=== PATIENT | male | born 1970 | race Caucasian/White ===

== ENCOUNTER 2023-10-09 18:13 | Emergency (ER) | payer SELFPAY ==
--- NOTE | 2023-10-09 19:02 | ED.GENMED ---
History of Present Illness
General
Chief Complaint: Crisis Evaluation
Source: patient and records
Time Seen by Provider: 10/09/23 18:27
Nursing documentation reviewed up to this point in time: agreed with
Travel History
Have you had any contact with someone who has COVID-19?: No
Do you have any symptoms of coronavirus? Fever > 100 degrees, chills, cough, shortness of breath, sore throat, loss of taste or smell, muscle aches, or headache?: No
History of Present Illness
History of Present Illness:
53-year-old male history of depression, seizure disorder brought in by police under 302 apparently was making threats of harming himself, taking pills here he is not cooperative, he is angry, tells me he is not working because he has seizures and
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
Prior records reviewed was admitted with a seizure, apparently had a meningioma resection with a leak, looks like he takes Keppra and Lamictal unclear if he has been compliant with that
Patient denies taking any pills or alcohol today
Additional history patient tells me he has not had his lamotrigine for 2 days apparently probably getting to a psychiatrist due to an [employer], tells me is no longer prescribed Keppra, he is prescribed lisinopril which she has been taking
Past History
Past History
ED Past Medical History: HTN and Seizures
ED Past Surgical History: Brain (Meningioma)
Social History
Tobacco: Non-smoker
Alcohol: None
Drug: None
Personal:
Living: with family
Employment: Not employed
Review of Systems
Review of Systems
Other source history: other (302/prior records)
All Other Systems: Not applicable
Phy Exam
Physical Exam
Physical Exam:
Physical Exam
General: Agitated male not cooperative
Neck: No jaundice
Lungs: no acute respiratory distress.
Neuro: alert and oriented. no focal neurological deficits
Skin: no rash
Psychiatric: Agitated pressured speech, using profanities threatening staff
Extremities: no edema.
Course
Orders/Labs/Results
Orders:
Orders
10/09/23 18:45
Haloperidol Lactate [Haldol] 10 mg IM NOW STA
10/09/23 18:46
Lorazepam [Ativan] 4 mg IM NOW STA
10/09/23 18:51
Crisis Consult Urgent
Reason for Consult: 302
10/09/23 19:30
Acetaminophen Urgent
Alcohol Urgent
Complete Blood Count/With Diff Urgent
Comprehensive Metabolic Panel Urgent
Salicylate Urgent
10/09/23 19:39
Asenapine Sublingual [Saphris] 5 mg .ROUTE .STK-MED ONE
10/09/23 19:42
Asenapine Sublingual [Saphris] 5 mg .ROUTE .STK-MED ONE
10/09/23 19:48
Asenapine Sublingual [Saphris] 10 mg SL NOW STA
10/09/23 19:52
Asenapine Sublingual [Saphris] 10 mg SL NOW STA
10/09/23 20:32
Haloperidol Lactate [Haldol] 1 mg IM NOW STA
Lorazepam [Ativan] 4 mg IM NOW STA
10/09/23 20:35
Haloperidol Lactate [Haldol] 10 mg IM NOW STA
10/09/23 20:51
Keppra (Levetiracetam) [S] Urgent
Urine Drug Abuse Screen Urgent
Date Specimen was Collected: 10/09/23
Time Specimen was Collected: 20:50
10/09/23 21:06
Restraints - Violent As Directed
Restraint Type-: Locked-4 point/4 rails
Apply From (date): 10/09/23
Apply from (time): 21:06
Remove (date): 10/10/23
Remove (time): 01:06
10/10/23 03:30
Restraints - Violent As Directed
Restraint Type-: Locked-4 point/4 rails
Apply From (date): 10/10/23
Apply from (time): 01:06
Remove (date): 10/10/23
Remove (time): 07:30
10/10/23 07:01
Restraints - Violent As Directed
Restraint Type-: Four Side Rails
Apply From (date): 10/10/23
Apply from (time): 07:01
Remove (date): 10/10/23
Remove (time): 11:01
10/10/23 09:00
COVID-19 Antigen Urgent
Source: Nasal Swab
Abnormal Lab Results
10/09/23 10/09/23
19:30 20:51
WBC 11.6 H 10^3/uL
(4.8-10.8)
RBC 6.66 H 10^6/uL
(4.70-6.10)
Hgb 19.4 H g/dL
(13.0-18.0)
Hct 56.8 H %
(39.0-52.0)
RDW 14.9 H %
(11.5-14.5)
Absolute Neuts (auto) 8.4 H 10^3/uL
(1.4-6.5)
Lymphocytes % 20.4 L %
(20.5-51.1)
Glucose 124 H mg/dl
(70-99)
Calcium 10.7 H mg/dl
(8.4-10.2)
Albumin 5.5 H g/dl
(3.5-5.0)
Salicylates < 1.0 L mg/dl
(2.0-20.0)
Acetaminophen < 10 L ug/ml
(10-30)
U Marijuana (THC) Screen Positive H
(Negative)
10/09/23 19:30
10/09/23 19:30
Vital Signs
Initial and Last Documented VS:
Initial Vital Signs
Temp Pulse Resp BP Pulse Ox
97.9 F 70 16 179/93 100
10/09/23 19:27 10/09/23 19:27 10/09/23 19:27 10/09/23 19:27 10/09/23 19:27
Last Documented Vital Signs
Temp Pulse Resp BP Pulse Ox
98.7 F 83 17 156/93 97
10/10/23 08:59 10/10/23 08:59 10/10/23 08:59 10/10/23 08:59 10/10/23 08:59
MDM/Problems Addressed
Differential Diagnosis Includes:
Agitation, withdrawal, not appear to be intoxicated
MDM/Problems Addressed:
Agitation
Chronic conditions affecting care:
Mental illness seizure disorder
Acute Exacerbation and/or Progression of Chronic Illness:
Mental illness seizure disorder
*Pulse Oximetry
Patient hypoxic: not evaluated
*Critical Care Note
Total Time (30-74mins, 75-104mins- exclusive of procedures): 30
Data Reviewed
Review of Other/Old Records Reveals: Records
Source: patient and police (302 by police)
Update Note
Update Note:
Update, with police at bedside he did allow some blood work is on the phone with his apparently has not been taking his meds,
Will see if he will take something by mouth hold on IM shot at this time
Labs noted hemoglobin close to baseline drug levels are noted Keppra is pending
8:30 PM patient became physically aggressive throwing water flipping the table threatening staff will chemically and physically restrained for his and staff safety
ED Attending Note
-
Portions of this chart may have been created with voice recognition software.� Occasional wrong word or��sound alike� substitutions may have occurred due to the inherent limitations of voice recognition software.
Discharge Plan
Departure
Patient Disposition: Psych Facility
Date of Disposition: 10/09/23
Time of Disposition: 20:56
Patient with high blood pressure during this ER visit?: No
Condition: Good
Discharge Problem:
Suicidal ideation
Prescriptions:
No Action
lisinopril 40 mg tablet
40 mg PO HS
Patient Comments:
has not picked up since 03/25/23 #90
lamotrigine 25 mg Tablet, Chewable Dispersible
25 mg PO BID Qty: 60 0RF
Interventions
Interventions:
*Risk Screen - Suicide Last Done: 10/09/23 18:25
*General Assessment Last Done: 10/09/23 23:00
*Neglect/Abuse Screening Last Done: 10/09/23 18:25
ED- Fall Risk Assessment Last Done: 10/10/23 09:00
*ED COVID-19 Vaccine History Last Done: 10/09/23 23:00
*Nursing Disposition Last Done: 10/10/23 12:42
ED-Psychological Assessment Last Done: 10/10/23 09:00
Discharge Date and Time
Discharge Date/Time: 10/10/23 12:44
[2023-10-09 19:27] VITALS: BP 179/93
[2023-10-09 19:35] LABS: % Basophils 0.3 % (0-2); % Eosinophils 0.5 % (0-6); % Immature Granulocytes 0.3 % (0-0.5); % Lymphocytes 20.4 % (20.5-51.1); % Monocytes 5.5 % (1.7-9.3); Absolute Eosinophils 0.1 10^3/uL (0-0.7); Absolute Lymphocytes 2.4 10^3/uL (1.2-3.4); Absolute Monocytes 0.6 10^3/uL (0.1-0.6); Absolute Neutrophils 8.4 10^3/uL (1.4-6.5); Hematocrit 56.8 % (39.0-52.0); Hemoglobin 19.4 g/dL (13.0-18.0); Mean Corp Hgb Conc. 34.2 g/dL (33.0-37.0); Mean Corpuscular Hgb 29.1 pg (27.0-31.0); Mean Corpuscular Volume 85.3 fL (80.0-94.0); Mean Platelet Volume 8.9 fL (7.4-10.4); Nucleated Red Blood Cells % 0 % (-); Platelet Count 296 10^3/uL (130-400); Red Blood Cell Count 6.66 10^6/uL (4.70-6.10); Red Cell Dist. Width 14.9 % (11.5-14.5); White Blood Cell Count 11.6 10^3/uL (4.8-10.8)
[2023-10-09] MEDS: SAPHRIS 10 MG SL (19:48)
[2023-10-09 19:51] LABS: ALT (SGPT) 24 U/L (0-50); AST (SGOT) 25 U/L (17-59); Acetaminophen < 10 ug/ml (10-30); Albumin 5.5 g/dl (3.5-5.0); Alkaline Phosphatase 110 U/L (38-126); Blood Urea Nitrogen 15 mg/dl (9-20); Calcium 10.7 mg/dl (8.4-10.2); Carbon Dioxide 22 mmol/L (22-30); Chloride 107 mmol/L (98-107); Glucose 124 mg/dl (70-99); Potassium 4.4 mmol/L (3.5-5.1); Salicylate < 1.0 mg/dl (2.0-20.0); Sodium 138 mmol/L (135-145); Total Bilirubin 1.1 mg/dl (0.2-1.3); Total Protein 8.1 g/dl (6.3-8.2); eGFR > 60.00
[2023-10-09 19:52] LABS: Alcohol None Detected
[2023-10-09] MEDS: HALDOL 10 MG IM (20:38)
[2023-10-09] MEDS: ATIVAN 4 MG IM (20:38)
[2023-10-09 21:12] LABS: Amphetamines Negative (Negative); Barbiturates Negative (Negative); Benzodiazepines Negative (Negative); Buprenorphine Negative (Negative); Cocaine Negative (Negative); Marijuana Positive (Negative); Methadone Negative (Negative); Methamphetamines Negative (Negative); Opiates Negative (Negative); Phencyclidine Negative (Negative); Tricyclic Antidepressants Negative (Negative)
[2023-10-09 21:46] VITALS: BP 150/94
[2023-10-10 08:59] VITALS: BP 156/93
--- NOTE | 2023-10-10 09:15 | EDRN ---
Patient calm and cooperative. Restraints removed. Patient denies any thoughts of wanting to hurt himself or others.
[2023-10-10 09:25] LABS: COVID-19 Antigen Negative (Negative)
[2023-10-11 22:03] LABS: Keppra (Levetiracetam) <2 ug/mL (10-40)
== END 2023-10-10 12:44 ==
LOC: EMR 18:13
PROVIDERS: Emergency Medicine; EMERGENCY PHYSICIAN Emergency Medicine
DX: R45.851 Suicidal ideations (principal); G40.909 Epilepsy, unspecified, not intractable, without status epilepticus; I10 Essential (primary) hypertension
CPT/HCPCS: 99283; 96372; 80053; 80143; 80177; 80179; 80306; 82077; 85025; 87811